=== PATIENT | female | born 1955 | race Caucasian/White ===

== ENCOUNTER 2016-07-01 10:25 | Emergency (ER) | payer BC ==
[~2016-07-01] VITALS: Ht 167.6 cm; Wt 113.1 kg
[~2016-07-01 10:25] MED LIST: FLEXERIL10 MG PO; MOTRIN600 MG PO
[2016-07-01 11:27] LABS: HEMATOCRIT 38.9 % (36.0-46.0); MCHC 32.6 G/DL (30.0-36.0); MCV 85.7 FL (83-99); MEAN PLAT.VOLUME 10.8 uM^3 (9.5-12.4); PLATELET COUNT 339 K/uL (156-360); RBC DIS.WIDTH-CV 13.3 % (11.8-14.6); RBC DIS.WIDTH-SD 40.9 % (39-53); RED BLOOD COUNT 4.54 M/uL (3.80-5.20); WHITE BLOOD COUNT 11.9 K/uL (4.1-10.2)
[2016-07-01 11:41] LABS: CHLORIDE 109 mEq/L (99-109); POTASSIUM 4.4 mEq/L (3.7-5.4); SODIUM 139 mEq/L (136-147)
[2016-07-01 11:42] LABS: GLUCOSE 89 mg/dL (70-99)
[2016-07-01 11:44] LABS: ANION GAP 9 MEQ/L (2-14)
[2016-07-01 11:46] LABS: GFR ESTIMATE (CALCULATED) 54 mL/min/
[2016-07-01 11:47] LABS: UREA NITROGEN (BUN) 21 mg/dL (9-23)
[2016-07-01 13:40] VITALS: BP 116/95
== END 2016-07-01 13:53 | disposition home or self-care (01) ==
LOC: EME 10:25
DX: N95.0 Postmenopausal bleeding (principal); R55 Syncope and collapse; F17.200 Nicotine dependence, unspecified, uncomplicated
CPT/HCPCS: 80048; 85027; 86850; 86900; 86901; 99281; 99284

== ENCOUNTER 2016-07-18 09:07 | Day surgery (SDC) | payer BC ==
[~2016-07-18] VITALS: Ht 167.6 cm; Wt 113.8 kg
[~2016-07-18 09:07] MED LIST changes: +CENTRUM SILVER1 EAC4 PO; +MEGACE40 MG PO
[2016-07-18 09:40] VITALS: BP 134/68
[2016-07-18] MEDS ORDERED: MEGACE40 MG PO (12:15)
[2016-07-18] MEDS ORDERED: MOTRIN600 MG PO (12:15)
[2016-07-18] MEDS ORDERED: HYDROCODON-ACE1 EAC7 PO (12:15)
[2016-07-18 13:23] VITALS: BP 158/52
[2016-07-18 13:53] VITALS: BP 150/58
== END 2016-07-18 14:09 | disposition home or self-care (01) ==
LOC: SDC 09:07
DX: C54.1 Malignant neoplasm of endometrium (principal); Z80.7 Family history of other malignant neoplasms of lymphoid, hematopoietic and related tissues; Z87.891 Personal history of nicotine dependence; E66.9 Obesity, unspecified; Z68.41 Body mass index [BMI] 40.0-44.9, adult
CPT/HCPCS: 88305; J0690; J1100; J2250; J2405; J3010

== ENCOUNTER 2016-08-04 12:49 | Inpatient (IN) | payer BC ==
[~2016-08-04] VITALS: Ht 168.9 cm; Wt 115.5 kg
[~2016-08-04 12:49] MED LIST changes: +HYDROCODON-ACE1 EAC7 PO
[2016-08-04] MEDS ORDERED: PROGESTERONE100 MG PO (13:28)
[2016-08-04 14:21] LABS: HEMATOCRIT 31.3 % (36.0-46.0); MCH 25.7 PG (29.0-34.0); MCHC 30.7 G/DL (30.0-36.0); MCV 83.7 FL (83-99); MEAN PLAT.VOLUME 10.3 uM^3 (9.5-12.4); PLATELET COUNT 370 K/uL (156-360); RBC DIS.WIDTH-CV 12.9 % (11.8-14.6); RED BLOOD COUNT 3.74 M/uL (3.80-5.20)
[2016-08-04 14:24] LABS: WHITE BLOOD COUNT 12.9 K/uL (4.1-10.2)
[2016-08-04 14:29] LABS: CHLORIDE 109 mEq/L (99-109); POTASSIUM 4.3 mEq/L (3.7-5.4); SODIUM 140 mEq/L (136-147)
[2016-08-04 14:32] LABS: ANION GAP 12 MEQ/L (2-14); GLUCOSE 96 mg/dL (70-99)
[2016-08-04 14:35] LABS: GFR ESTIMATE (CALCULATED) > 59 mL/min/
[2016-08-04 14:36] LABS: UREA NITROGEN (BUN) 15 mg/dL (9-23)
[2016-08-04 14:39] LABS: D-DIMER ELISA > 4.00 mg/L FEU (< 0.57)
[2016-08-04 15:01] LABS: TROP-I INTERPRETATION NEGATIVE; TROPONIN-I 0.25 ng/mL (0.0-0.30)
[2016-08-04] MEDS ORDERED: ADVIL200 MG PO (17:46)
[2016-08-04] MEDS ORDERED: MEGACE40 MG PO (17:51)
[2016-08-04 18:50] LABS: INTER. NORMALIZED RATIO 1.1; PROTHROMBIN TIME 11.4 (9.2-11.2); PTT 26.7 (25-32)
[2016-08-04 22:50] VITALS: BP 115/67
[2016-08-04 23:44] VITALS: BP 115/67
[2016-08-05 03:00] VITALS: BP 103/68
[2016-08-05 04:01] LABS: TROP-I INTERPRETATION NEGATIVE; TROPONIN-I 0.13 ng/mL (0.0-0.30)
[2016-08-05 07:11] VITALS: BP 99/62
[2016-08-05 07:30] LABS: HEMATOCRIT 27.3 % (36.0-46.0); MCH 25.5 PG (29.0-34.0); MCHC 30.4 G/DL (30.0-36.0); MEAN PLAT.VOLUME 11.2 uM^3 (9.5-12.4); PLATELET COUNT 301 K/uL (156-360); RBC DIS.WIDTH-CV 13.1 % (11.8-14.6); RBC DIS.WIDTH-SD 39.7 % (39-53); RED BLOOD COUNT 3.25 M/uL (3.80-5.20); WHITE BLOOD COUNT 13.9 K/uL (4.1-10.2)
[2016-08-05 11:30] VITALS: BP 112/75
[2016-08-05 15:49] VITALS: BP 118/66
[2016-08-05 20:43] VITALS: BP 118/77
[2016-08-05 21:43] LABS: BASOPHIL COUNT 0.1 K/uL (0-0.1); EOSINOPHIL (%) 1.4 % (0-5); EOSINOPHIL COUNT 0.2 K/uL (0-0.3); HEMATOCRIT 26.5 % (36.0-46.0); IMMATURE GRANULOCYTE (%) 0.5 % (0.0-0.7); IMMATURE GRANULOCYTE COUNT 0.1 K/uL; INSTRUMENT ABS NEUTROPHIL CT 8.3 K/uL; LYMPHOCYTE COUNT 3.3 K/uL (1.0-2.8); MCH 25.9 PG (29.0-34.0); MCHC 30.9 G/DL (30.0-36.0); MCV 83.9 FL (83-99); MEAN PLAT.VOLUME 11.1 uM^3 (9.5-12.4); MONOCYTE (%) 5.4 % (3-12); MONOCYTE COUNT 0.7 K/uL (0-0.8); NEUTROPHIL (%) 66.1 % (45-76); NEUTROPHIL COUNT 8.3 K/uL (1.8-6.4); NRBC (%) 0.2 /100 WBC (0-0); PLATELET COUNT 285 K/uL (156-360); RBC DIS.WIDTH-CV 13.1 % (11.8-14.6); RBC DIS.WIDTH-SD 39.9 % (39-53); RED BLOOD COUNT 3.16 M/uL (3.80-5.20); WHITE BLOOD COUNT 12.5 K/uL (4.1-10.2)
[2016-08-06 00:09] VITALS: BP 118/68
[2016-08-06 04:00] VITALS: BP 135/64
[2016-08-06 07:30] VITALS: BP 138/83
[2016-08-06 07:41] LABS: ANION GAP 10 MEQ/L (2-14); CHLORIDE 106 MEQ/L (99-109); GFR ESTIMATE (CALCULATED) > 59 mL/min/; GLUCOSE 125 mg/dL (70-99); SAMPLE HEMOLYSIS CHECK 0; SAMPLE ICTERIC CHECK 0; SAMPLE LIPEMIA CHECK 0; SODIUM 135 MEQ/L (136-147); UREA NITROGEN (BUN) 22 mg/dL (9-23)
[2016-08-06 08:18] LABS: BASOPHIL COUNT 0.1 K/uL (0-0.1); EOSINOPHIL (%) 1.7 % (0-5); EOSINOPHIL COUNT 0.2 K/uL (0-0.3); HEMATOCRIT 28.9 % (36.0-46.0); IMMATURE GRANULOCYTE (%) 0.5 % (0.0-0.7); IMMATURE GRANULOCYTE COUNT 0.1 K/uL; INSTRUMENT ABS NEUTROPHIL CT 7.7 K/uL; LYMPHOCYTE COUNT 2.8 K/uL (1.0-2.8); MCH 25.2 PG (29.0-34.0); MCHC 28.7 G/DL (30.0-36.0); MCV 87.6 FL (83-99); MEAN PLAT.VOLUME 11.5 uM^3 (9.5-12.4); MONOCYTE (%) 4.9 % (3-12); MONOCYTE COUNT 0.6 K/uL (0-0.8); NEUTROPHIL (%) 67.5 % (45-76); NEUTROPHIL COUNT 7.7 K/uL (1.8-6.4); NRBC (%) 0.2 /100 WBC (0-0); PLATELET COUNT 248 K/uL (156-360); RBC DIS.WIDTH-CV 13.2 % (11.8-14.6); RBC DIS.WIDTH-SD 42.1 % (39-53); WHITE BLOOD COUNT 11.3 K/uL (4.1-10.2)
[2016-08-06 11:30] VITALS: BP 102/74
[2016-08-06] MEDS ORDERED: LOVENOX120 MG/0.8 SC (14:41)
[2016-08-06 16:00] VITALS: BP 131/84
[2016-08-06 19:57] VITALS: BP 130/70
[2016-08-07] VITALS (7 sets, daily range): BP systolic 118–139; BP diastolic 58–76
[2016-08-07 08:15] LABS: BASOPHIL COUNT 0.1 K/uL (0-0.1); EOSINOPHIL COUNT 0.2 K/uL (0-0.3); HEMATOCRIT 26.5 % (36.0-46.0); IMMATURE GRANULOCYTE (%) 0.6 % (0.0-0.7); IMMATURE GRANULOCYTE COUNT 0.1 K/uL; INSTRUMENT ABS NEUTROPHIL CT 6.9 K/uL; LYMPHOCYTE COUNT 2.5 K/uL (1.0-2.8); MCHC 30.2 G/DL (30.0-36.0); MEAN PLAT.VOLUME 11.3 uM^3 (9.5-12.4); MONOCYTE (%) 5.5 % (3-12); MONOCYTE COUNT 0.6 K/uL (0-0.8); NEUTROPHIL (%) 67.4 % (45-76); NEUTROPHIL COUNT 6.9 K/uL (1.8-6.4); NRBC (%) 0.2 /100 WBC (0-0); PLATELET COUNT 280 K/uL (156-360); RBC DIS.WIDTH-CV 13.1 % (11.8-14.6); RBC DIS.WIDTH-SD 39.8 % (39-53); WHITE BLOOD COUNT 10.3 K/uL (4.1-10.2)
[2016-08-07 08:17] LABS: MCV 82.8 FL (83-99)
[2016-08-08 04:49] VITALS: BP 113/62
[2016-08-08 07:09] LABS: BASOPHIL COUNT 0.1 K/uL (0-0.1); EOSINOPHIL (%) 2.3 % (0-5); EOSINOPHIL COUNT 0.3 K/uL (0-0.3); HEMATOCRIT 26.6 % (36.0-46.0); IMMATURE GRANULOCYTE (%) 0.7 % (0.0-0.7); IMMATURE GRANULOCYTE COUNT 0.1 K/uL; INSTRUMENT ABS NEUTROPHIL CT 7.6 K/uL; LYMPHOCYTE COUNT 2.2 K/uL (1.0-2.8); MCH 25.2 PG (29.0-34.0); MCHC 30.8 G/DL (30.0-36.0); MCV 81.8 FL (83-99); MEAN PLAT.VOLUME 11.1 uM^3 (9.5-12.4); MONOCYTE (%) 5.5 % (3-12); MONOCYTE COUNT 0.6 K/uL (0-0.8); NEUTROPHIL (%) 70.2 % (45-76); NEUTROPHIL COUNT 7.6 K/uL (1.8-6.4); PLATELET COUNT 274 K/uL (156-360); RBC DIS.WIDTH-SD 38.8 % (39-53); RED BLOOD COUNT 3.25 M/uL (3.80-5.20); WHITE BLOOD COUNT 10.8 K/uL (4.1-10.2)
[2016-08-08 07:10] VITALS: BP 116/56
[2016-08-08 11:50] VITALS: BP 122/86
[2016-08-08 15:28] VITALS: BP 119/67
[2016-08-08] MEDS ORDERED: IRON325 MG PO (16:48)
[2016-08-08] MEDS ORDERED: DOCUSATE SODIU100 MG PO (16:50)
[2016-08-08] MEDS ORDERED: TYLENOL REGULA325 MG PO (16:50)
[2016-08-08] MEDS ORDERED: TRAMADOL HCL50 MG PO (16:50)
== END 2016-08-08 18:00 | disposition home or self-care (01) | DRG 176 ==
LOC: EME 12:49 → 4EAST 20:03 → EDOF 20:03 → 4EAST 22:40
PROVIDERS: Emergency Medicine; Internal Medicine Pulmonary Disease; Physician Assistant Medical; Student in an Organized Health Care Education/Training Program
DX: I26.92 Saddle embolus of pulmonary artery without acute cor pulmonale (principal); Z68.41 Body mass index [BMI] 40.0-44.9, adult; D50.0 Iron deficiency anemia secondary to blood loss (chronic); T38.5X5A Adverse effect of other estrogens and progestogens, initial encounter; C54.1 Malignant neoplasm of endometrium; E66.9 Obesity, unspecified; I71.2 Thoracic aortic aneurysm, without rupture; I34.0 Nonrheumatic mitral (valve) insufficiency; I36.1 Nonrheumatic tricuspid (valve) insufficiency; I51.7 Cardiomegaly; N95.0 Postmenopausal bleeding; I27.2 Other secondary pulmonary hypertension; Z87.891 Personal history of nicotine dependence; Z82.49 Family history of ischemic heart disease and other diseases of the circulatory system; Z80.7 Family history of other malignant neoplasms of lymphoid, hematopoietic and related tissues
CPT/HCPCS: 71020; 71275; 80048; 82728; 83880; 84484; 85025; 85027; 85379; 85610; 85730; 93005; 93306; 93970; 99281; 99285; J1650; J7030

== ENCOUNTER 2016-09-24 10:10 | Day surgery (SDC) | payer BC ==
[~2016-09-24] VITALS: Ht 165.1 cm; Wt 111.0 kg
[~2016-09-24 10:10] MED LIST changes: +ADVIL200 MG PO; +DOCUSATE SODIU100 MG PO; +IRON325 M1 PO; +IRON325 MG PO; +LORTAB 7.5-3251 EACH PO; +LOVENOX120 MG/0.8 SC; +PROGESTERONE100 MG PO; +TRAMADOL HCL50 MG PO; +TYLENOL REGULA325 MG PO; +VITAMIN D35000 UNIT PO; +XARELTO20 MG PO
== END 2016-09-24 12:29 | disposition home or self-care (01) ==
LOC: CATH 10:10
DX: I87.8 Other specified disorders of veins (principal); C55 Malignant neoplasm of uterus, part unspecified; Z86.718 Personal history of other venous thrombosis and embolism; Z86.711 Personal history of pulmonary embolism; Z79.01 Long term (current) use of anticoagulants; Z95.828 Presence of other vascular implants and grafts; Z87.891 Personal history of nicotine dependence; Z68.41 Body mass index [BMI] 40.0-44.9, adult; M19.90 Unspecified osteoarthritis, unspecified site; Z82.49 Family history of ischemic heart disease and other diseases of the circulatory system; Z84.1 Family history of disorders of kidney and ureter
CPT/HCPCS: C1751; C1894; J0690; J1200; J1644; J2250; J3010; S0020